=== PATIENT | female | born 2000 | race Caucasian/White ===

== ENCOUNTER 2021-03-09 15:27 | Emergency (ER) | payer BC, SELFPAY ==
--- NOTE | ~2021-03-09 | XR_ITS ---
EXAMINATION: XR elbow RT min 3V DATE: 03/09/2021 15:48 INDICATION: Right elbow pain post fall TECHNIQUE: Anteroposterior, two oblique and lateral views of the right elbow were obtained. COMPARISON: None. FINDINGS: Alignment is normal. Tiny sliver-like calcific density near the tip of the coronoid process without e vident donor site to suggest fracture. Joint spaces are normal. No right elbow joint effusion. Soft t issues are unremarkable. IMPRESSION: 1. No right elbow joint effusion or acute osseous abnormality. Reviewed, dictated and finalized at location B. [employer]
--- NOTE | 2021-03-09 15:35 | ED.UPPEXIN ---
HPI - Extremity Injury (Upper) General Chief Complaint: Extremity Injury, Upper Stated Complaint: lt arm injury Time Seen by Provider: 03/09/21 15:35 Source: patient, RN notes reviewed and old records reviewed Mode of arrival: ambulatory Limitations: no limitations History of Present Illness HPI narrative: 21-year-old female presents to the [facility] with complaints of right elbow pain and swelling after falling down a couple of stairs last night. Decreased range of motion of the right elbow. Full range of motion of the right wrist, strong first sampler. Positive radial pulse, capillary refill under 2 seconds in all 5 fingers with sensation intact. Denies hitting head. No loss of consciousness. No neck pain or back pain. No hip pain, abdominal pain or chest pain. MD complaint: injury to: right and elbow Related Data Allergies Allergy/AdvReac Type Severity Reaction Status Date / Time No Known Allergies Allergy Unverified 03/09/21 15:40 Review of Systems Review of Systems: All systems reviewed & are unremarkable except as noted in HPI and below Constitutional: Constitutional: Reports no additional constitutional complaints, Denies chills and Denies fever(s) Eyes: Eyes: Reports no additional eye complaints ENT: Reports system reviewed and no additional complaints, except as documented Cardiovascular: Cardiovascular: Reports no additional cardiovascular complaints and Denies chest pain Respiratory: Respiratory: Reports no additional respiratory complaints, Denies cough, Denies dyspnea and Denies wheezing Gastrointestinal: Gastrointestinal: Reports no additional gastrointestinal complaints Musculoskeletal: Musculoskeletal: Reports as per HPI, Reports arthralgias (Right elbow) and Reports joint swelling (Right elbow) Integumentary/Breasts: Skin/Breast: Reports system reviewed and no additional complaints, except as docu Neurologic: Reports system reviewed and no additional complaints, except as documented Psychiatric: Psychiatric: Reports no additional psychiatric complaints Allergic/Immunologic: Allergic/Immunologic: Reports no additional allergic/immunologic complaints PMFSH Past Medical History Medical History (Updated 03/09/21 @ 16:11 by Lisa Vogel) BAYRON (generalized anxiety disorder) Patient denies significant medical history Surgical History Surgical History (Updated 03/09/21 @ 16:11 by Lisa Vogel) No significant past surgical history Social History Social History Smoking status: Never smoker Alcohol intake: current Substance use: never Gender identity (if verbalized by the patient): Female Comments At the time of my signature, I reviewed and agree with the nursing past medical, surgical, social, and family history. There is no relevant family history pertinent to the patient complaint. Exam Const: General: healthy appearing, no acute distress and alert Nutritional Appearance: well nourished Orientation/consciousness: patient oriented x3 Limitations: no limitations HENMT: Head: normal to inspection Ears: external ears normal Eyes: Pupils: Equal, round and reactive pupils present Neck: Neck: normal visual inspection, no lymphadenopathy and no meningeal signs Chest: Chest palpation & inspection: normal inspection of the chest Resp: Effort & Inspection: normal respiratory effort Cardio: Rate: regular rate Back/Spine/Pelvis: Back: no CVA tenderness Skin: General skin exam: normal color Wounds: no wounds Neuro: General: patient oriented x3, moves all extremities, no meningeal signs and no focal motor deficits Speech: normal speech Gait exam (Neuro): Normal gait present Extrem: General: normal to inspection Right upper extremity: elbow/forearm swelling of the olecranon and of the radial head, abnormal ROM pain with active ROM during and pain with passive ROM during, ecchymosis (Posterior elbow) and distal pulses intact; no unusu
[2021-03-09 15:38] VITALS: BP 117/66; PULSE 75; RESP 18; TEMP 36.9; O2SAT 100
== END 2021-03-09 16:09 | disposition home or self-care (01) ==
PROVIDERS: Emergency Provider Nurse Practitioner; PCP Family Medicine
DX: S50.01XA Contusion of right elbow, initial encounter (principal); W10.9XXA Fall (on) (from) unspecified stairs and steps, initial encounter
CPT/HCPCS: 73080; 99213; G0463

== ENCOUNTER 2021-10-04 13:45 | Emergency (ER) | payer OTHER, SELFPAY ==
--- NOTE | ~2021-10-04 | XR_ITS ---
XR hip LT min 2V 10/04/2021 15:02 Indication: Left hip pain Procedure: 4 views left hip Comparison: AP pelvis dated 10/04/2021 Findings: There is a nondisplaced left acetabular fracture. No definite femoral fracture. No signific ant soft tissue abnormality. No foreign body. Impression: 1: Nondisplaced left acetabular fracture. Consider correlation with CT. Reviewed, dictated and finalized at location A. Impression: 1: Nondisplaced left acetabular fracture. Consider correlation with CT.
--- NOTE | ~2021-10-04 | XR_ITS ---
EXAMINATION: XR pelvis 1-2V INDICATION: Pelvic pain after fall TECHNIQUE: AP view the pelvis is obtained. COMPARISON: None available FINDINGS: Bone alignment is normal. There is a lucency in the left acetabulum. The soft tissues are u nremarkable. IMPRESSION: 1. Lucency of the left acetabulum suspicious for nondisplaced fracture. Dedicated left hip radiograph s are recommended. Reviewed, dictated and finalized at location B. IMPRESSION: 1. Lucency of the left acetabulum suspicious for nondisplaced fracture. Dedic ed left hip radiographs are recommended.
[2021-10-04 13:58] VITALS: BP 135/66; PULSE 86; RESP 18; TEMP 36.7; O2SAT 100
--- NOTE | 2021-10-04 14:01 | ED.FALL ---
HPI - Fall General Chief Complaint: Fall Stated Complaint: fall Time Seen by Provider: 10/04/21 14:03 Source: patient, RN notes reviewed and old records reviewed History of Present Illness HPI Narrative: 21 year old female who presents to [facility] for rehabilitation care with complaints of running and slipped on the 01 of October and fell onto her posterior left lower buttocks and posterior left thigh. Patient reports that pain is sharp especially when moving from sitting to standing position and she reports that she is unable to raise left thigh upwards due to pain at hip. Patient reports that she has been taking Ibuprofen and using heat to the left buttocks and posterior upper thigh and taking it easy. Patient states that her work told her she needed to get checked out. MD complaint: fall Onset (ago): day(s) (3) Fall from: standing Severity scale (1-10): 7 Quality: sharp and throbbing Related Data Allergies Allergy/AdvReac Type Severity Reaction Status Date / Time No Known Allergies Allergy Unverified 03/09/21 15:40 Review of Systems Review of Systems: CONSTITUTIONAL: Denies fever, chills, or sweats. EYES: Denies visual changes, redness, or discharge. ENT: Denies rhinorrhea, congestion, sore throat, or otalgia. CARDIOVASCULAR: Denies chest pain, palpitations, or edema. RESPIRATORY: Denies cough or dyspnea. GASTROINTESTINAL: Denies abdominal pain, nausea, vomiting, or diarrhea. GENITOURINARY: Denies dysuria or hematuria. SKIN: Denies rash or itching. MUSCULOSKELETAL: Denies back pain, reports pain to left lower buttock and left posterior thigh area with difficulty raising left thigh at hip joint area, or myalgia. NEUROLOGIC: Denies headache, numbness, or weakness. PSYCHIATRIC: Positive for history of anxiety or depression. All systems reviewed & are unremarkable except as noted in HPI and below PMFSH Past Medical History Medical History BAYRON (generalized anxiety disorder) Patient denies significant medical history Surgical History Surgical History No significant past surgical history Social History Social History Smoking status: Never smoker Alcohol intake: current Substance use: never Gender identity (if verbalized by the patient): Female Comments At time of signature, agree with nursing past medical, surgical, social and family history. There is no relevant family history pertinent to the presenting complaint Exam Narrative: GENERAL: Well-appearing, well-nourished, and in no acute distress. HEAD: Normocephalic, atraumatic. EYES: PERRLA and EOMI. ENT: Nares clear, no rhinorrhea or epistaxis. Mucous membranes moist.TM's normal with good light reflex, throat pink with no lesions or exudates, no tonsil swelling. NECK: Supple.no lymphadenopathy CHEST: Clear to auscultation. No respiratory distress.SAO2 100% on room air HEART: Regular rate and rhythm. No murmur heard. Normal peripheral pulses. ABDOMEN: Soft, nontender, nondistended, normal active bowel sounds. EXTREMITIES: Normal range of motion. No edema.Exception noted to pain to left posterior buttocks and upper posterior thigh with increased pain with any position changes, Patient is unable to lift thigh at hip without severe pain. strong pulses to left foot with no numbness or tingling SKIN: Warm, dry, no rash. NEURO: No focal deficits. Alert and oriented x3. Course Course Level of Care: Express Care Visit Vital Signs Vital signs: Vital Signs Temperature 36.7 C 10/04/21 13:58 Pulse Rate 86 10/04/21 13:58 Respiratory Rate 18 10/04/21 13:58 Blood Pressure 135/66 10/04/21 13:58 Pulse Oximetry 100 10/04/21 13:58 Oxygen Delivery Room Air 10/04/21 13:58 Temperature 36.7 C 10/04/21 13:58 Pulse Rate 86 10/04/21 13:58 Respiratory Rate 18 10/04/21 13:58 Blood Pressure 135/66
== END 2021-10-04 16:10 | disposition home or self-care (01) ==
PROVIDERS: Emergency Provider Registered Nurse; PCP Family Medicine
DX: S32.455A Nondisplaced transverse fracture of left acetabulum, initial encounter for closed fracture (principal); W01.0XXA Fall on same level from slipping, tripping and stumbling without subsequent striking against object, initial encounter
CPT/HCPCS: 72170; 73502; 99213; G0463

== ENCOUNTER 2021-10-11 15:26 | Outpatient (CLI) | payer OTHER, SELFPAY ==
--- NOTE | ~2021-10-11 | CT_ITS ---
EXAMINATION: CT hip LT wo con DATE: 10/11/2021 15:49 INDICATION: Left hip pain TECHNIQUE: High resolution computed tomography (CT) of the left hip was performed without intravenous contrast. Additional sagittal and coronal reconstructions were performed. Automated exposure control and iterative reconstruction technique were employed. The dose-length product was 486.98 mGy-cm. COMPARISON: 10/04/2021 FINDINGS: Again seen is a nondisplaced left acetabular fracture, likely transverse according to the Judet and L etournel classification. Portions of the fracture plane are nearly indiscernible. The fracture plane extends across the cephalad and posterior aspect of the articular surface of the left acetabulum with out incongruity. The maximal fracture gap along the articular surface measures up to 1.5 mm in width at the posterior acetabulum. No evident fracture of the left obturator ring the visualized proximal l eft femur. Left hip joint space is normal. Small left hip joint effusion. Visualized portions of the bladder, uterus and left adnexa are unremarkable. No pathologically enlarged left inguinal lymphadeno aaron.. IMPRESSION: 1. Nondisplaced left acetabular fracture, transverse according to the Judet and Letournel classificat ion. Reviewed, dictated and finalized at location B. IMPRESSION: 1. Nondisplaced left acetabular fracture, transverse according to the Judet and Letournel classification.
== END 2021-10-11 15:27 | disposition home or self-care (01) ==
PROVIDERS: PCP Family Medicine; Visit Provider Orthopaedic Surgery
DX: S32.455A Nondisplaced transverse fracture of left acetabulum, initial encounter for closed fracture (principal); X58.XXXA Exposure to other specified factors, initial encounter
CPT/HCPCS: 73700

== ENCOUNTER 2021-11-20 11:40 | Emergency (ER) | payer OTHER, SELFPAY ==
[2021-11-20 11:51] VITALS: BP 130/86; PULSE 84; RESP 18; TEMP 36.9; O2SAT 100
--- NOTE | 2021-11-20 12:02 | ED.SKABFB ---
HPI - Skin/Abscess/Foreign Bdy General Chief complaint: Skin/Abscess/Foreign Body Stated complaint: Rash neck,arms Time Seen by Provider: 11/20/21 12:02 Source: patient Mode of arrival: ambulatory Limitations: no limitations History of Present Illness HPI narrative: 21 y/o female presented for rash to face, neck, arms and legs since yesterday. Endorses boyfriend had the same rash started 3 days ago, was seen in ER and told he has allergic reaction. She states the only change has been the personal lubricant. Denies change to lotion, soap, detergent or meds. Denies lip, tongue, throat itching or swelling, difficulty breathing or wheezing. Related Data Allergies Allergy/AdvReac Type Severity Reaction Status Date / Time No Known Allergies Allergy Verified 11/20/21 11:58 Review of Systems Review of Systems: CONSTITUTIONAL: Denies body aches, fever, chills, or sweats. EYES: Denies visual changes, redness, or discharge. ENT: Denies rhinorrhea, congestion CARDIOVASCULAR: Denies chest pain, palpitations, or edema. RESPIRATORY: Denies cough or dyspnea. GASTROINTESTINAL: Denies abdominal pain, nausea, vomiting, or diarrhea. SKIN: reports rash and itching MUSCULOSKELETAL: Denies back pain, joint pain, or myalgia. NEUROLOGIC: Denies headache, numbness, tingling, or weakness. [facility] Past Medical History Medical History BAYRON (generalized anxiety disorder) Patient denies significant medical history Surgical History Surgical History No significant past surgical history Social History Social History Smoking status: Never smoker Alcohol intake: current Substance use: never Gender identity (if verbalized by the patient): Female Comments At time of signature, I have reviewed and agree with nursing past medical, surgical, social and family history unless otherwise noted. Please see nursing chart for further information. There is no relevant family history pertinent to the presenting complaint Exam Narrative: GENERAL: Well-appearing HEAD: Normocephalic, atraumatic. EYES: conjunctivae clear, and EOMI. ENT: Mucous membranes moist. Oropharynx without edema, erythema or lesions. NECK: Supple. No lymphadenopathy CHEST: Clear to auscultation. No distress. HEART: Regular rate and rhythm. SKIN: Warm, dry. mac/pap rash to bilateral arms, thighs, neck and face, c/w dermatitis; no drainage or s/s infection NEURO: Alert and oriented x3. Course Course Emergency Course: Patient is aware of diagnosis, understands and agrees to treatment plan. Anticipatory guidance given. Patient agrees to follow-up as directed and is aware of reasons to seek care at the emergency department. Portions of this record may have been created with voice recognition software Level of Care: Express Care Visit Vital Signs Vital signs: Vital Signs Temperature 98.4 F 11/20/21 11:51 Pulse Rate 84 11/20/21 11:51 Respiratory Rate 18 11/20/21 11:51 Blood Pressure 130/86 11/20/21 11:51 Pulse Oximetry 100 11/20/21 11:51 Oxygen Delivery Room Air 11/20/21 11:51 Temperature 98.4 F 11/20/21 11:51 Pulse Rate 84 11/20/21 11:51 Respiratory Rate 18 11/20/21 11:51 Blood Pressure 130/86 11/20/21 11:51 Pulse Oximetry 100 11/20/21 11:51 Oxygen Delivery Room Air 11/20/21 11:51 Reviewed MDM - Skin/Abscess/Foreign Bdy MDM Narrative Medical decision making narrative: Advised supportive measures and signs/symptoms to go to the ER. Pt is appropriate for outpt treatment and f/u. Instructed patient to go to nearest ER immediately for any worsening symptoms including but not limited to: fever, spreading rash, pain, sore throat, headache, dizziness, chest pain, trouble breathing, or any symptoms concerning to the patient. Differential Diagnosis Differential d
== END 2021-11-20 12:14 | disposition home or self-care (01) ==
PROVIDERS: Emergency Provider Nurse Practitioner Family; PCP Family Medicine
DX: L30.9 Dermatitis, unspecified (principal); F41.1 Generalized anxiety disorder
CPT/HCPCS: 99213; G0463

== ENCOUNTER 2023-10-21 13:25 | Emergency (ER) | payer OTHER, SELFPAY ==
[2023-10-21 13:33] VITALS: BP 134/83; PULSE 70; RESP 16; TEMP 36.7; O2SAT 100
--- NOTE | 2023-10-21 13:36 | ED.EYEPROB ---
HPI - Eye Problem General Chief complaint: Eye Problems Stated complaint: poss pink eye Time Seen by Provider: 10/21/23 13:37 Source: patient, RN notes reviewed and old records reviewed Mode of arrival: ambulatory Limitations: no limitations History of Present Illness HPI Narrative: 23 year old female who [facility] with complaints of right eye redness with itching and some mucoid drainage since yesterday. Patient reports that her eye was crusted shut this morning. Patient reports no change in her vision, denies any acute pain to her right eye. Patient reports no known ill contacts. Visual acuity right eye 20/20, Left eye 20/25 with glasses worn. MD chief complaint: eye redness and other (crusty eye this morning) Onset (ago): day(s) (day 2 of symptoms) Location: right eye Eye Symptoms: redness, itching and discharge Related Data Allergies Allergy/AdvReac Type Severity Reaction Status Date / Time No Known Allergies Allergy Verified 01/07/23 13:03 Review of Systems Review of Systems: CONSTITUTIONAL: Denies fever, chills, or sweats. EYES: Denies visual changes. Reports redness,, irritation, discharge from right eye ENT: Denies rhinorrhea, congestion, sore throat, or otalgia. CARDIOVASCULAR: Denies chest pain, palpitations, or edema. RESPIRATORY: Denies cough or dyspnea. SKIN: Denies rash or itching. NEUROLOGIC: Denies headache All systems reviewed & are unremarkable except as noted in HPI and below PMFSH Past Medical History Medical History BAYRON (generalized anxiety disorder) Patient denies significant medical history Surgical History Surgical History No significant past surgical history Social History Social History Smoking status: Never smoker Alcohol intake: current Substance use: never Gender identity (if verbalized by the patient): Female Comments At time of signature, agree with nursing past medical, surgical, social and family history. There is no relevant family history pertinent to the presenting complaint Exam Narrative: GENERAL: Well-appearing, well-nourished, and in no acute distress. HEAD: Normocephalic, atraumatic. EYES: PERRLA and EOMI. Upper and lower eyelids unremarkable. No periorbital cellulitis noted. Sclera and conjunctivae injected right eye with mucoid drainage noted, no sharp pain right eye or visual deficit. ENT: Nares clear, no rhinorrhea or epistaxis. Mucous membranes moist. NECK: Supple.no lymphadenopathy CHEST: Clear to auscultation. No respiratory distress. SAO2 100% on room air HEART: Regular rate and rhythm. No murmur heard. Normal peripheral pulses. SKIN: Warm, dry, no rash. NEURO: No focal deficits. Alert and oriented x3. Course Course Emergency Course: Patient is aware of diagnosis, understands and agrees to treatment plan. Anticipatory guidance given. Patient agrees to follow-up as directed and is aware of reasons to seek care at the emergency department. Portions of this record may have been created with voice recognition software Level of Care: Express Care Visit Vital Signs Vital signs: Vital Signs Temperature 36.7 C 10/21/23 13:33 Pulse Rate 70 10/21/23 13:33 Respiratory Rate 16 10/21/23 13:33 Blood Pressure 134/83 10/21/23 13:33 Pulse Oximetry 100 10/21/23 13:33 Oxygen Delivery Room Air 10/21/23 13:33 Temperature 36.7 C 10/21/23 13:33 Pulse Rate 70 10/21/23 13:33 Respiratory Rate 16 10/21/23 13:33 Blood Pressure 134/83 10/21/23 13:33 Pulse Oximetry 100 10/21/23 13:33 Oxygen Delivery Room Air 10/21/23 13:33 Reviewed MDM - Eye Problem MDM Narrative Medical decision making narrative: Consideration of the following conditions may be warranted for the presenting problem, they are not final diagnoses: Bacterial conjunctivitis
[2023-10-21 13:37] VITALS: BP 134/83; PULSE 70; RESP 16; TEMP 36.7; O2SAT 100
== END 2023-10-21 13:52 | disposition home or self-care (01) ==
PROVIDERS: Emergency Provider Registered Nurse
DX: H10.31 Unspecified acute conjunctivitis, right eye (principal); F41.1 Generalized anxiety disorder
CPT/HCPCS: 99213; G0463